=== PATIENT | female | born 1950 | race Two or more races ===

== ENCOUNTER → 2020-07-26 | Day surgery (SDC) | payer OTHER, BC ==
--- NOTE | 2020-07-31 16:45 | PATH ---
Cytology Non-Gynecological Report Patient Name: TRUONG MANNING [facility]. Rec. #: [id number] /Age/Gender: 1950 (Age: 69) / F Account: [id number] Location: RADIOLOGY INTER Taken: 07/26/2020 Received: 07/26/2020 Reported: 07/31/2020 Physicians: Megan Prater M.D. Specimen(s) Received THYROID, RIGHT LOBE, FINE NEEDLE ASPIRATION Clinical History Right lobe, ? Parathyroid Final Diagnosis THYROID, RIGHT LOBE, FINE NEEDLE ASPIRATION: UNSATISFACTORY FOR EVALUATION. [place] CLASS I: NON-DIAGNOSTIC. RARE COLLOID IN HEMORRHAGIC BACKGROUND PRESENT. NO DEFINITIVE FOLLICULAR CELLS OR PARATHYROID CELLS IDENTIFIED. Comment: The specimen has insufficient follicular cell clusters and/or colloid; and suboptimal for complete cytopathologic evaluation according to [employer] [place] System for Reporting Thyroid FNA. If the nodule has worrisome ultrasound imaging properties, suggest repeat FNA, as warranted. Electronically Signed Yesenia Blair M.D. Gross Description Received are eight direct smears, four of which are air-dried and Diff-Quik stained, and four of which are alcohol fixed and Pap stained. Also received is 20 ml of bloody formalin from which one cellblock is prepared.
== END | disposition home or self-care (01) ==
LOC: JRADIR 10:53
PROVIDERS: ATTEND Internal Medicine Endocrinology, Diabetes & Metabolism
PROC: 0G9K3ZX Drainage of Thyroid Gland, Percutaneous Approach, Diagnostic (ICD-10-PCS; principal; 2020-07-26)
DX: E04.1 Nontoxic single thyroid nodule (principal)
CPT/HCPCS: 76942; 88173; 88305-TC